=== PATIENT | male | born 2000 | race Caucasian/White ===

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

== ENCOUNTER 2019-09-02 13:42 | Emergency (ER) | payer OTHER ==
[2019-09-02] MEDS ORDERED: IBUPROFEN 600 MG TABLET (FP) PO ONE ×2 (13:47→13:54)
--- NOTE | 2019-09-02 13:47 | PDOC ---
Rapid Medical Evaluation Time Seen by Provider: 09/02/19 13:45 Medical Evaluation: Allergies Allergy/AdvReac Type Severity Reaction Status Date / Time No Known Allergies Allergy Verified 09/05/17 20:08 09/02/19 13:45 Pt is a 19 y/o M who presents for R hand pain after getting it caught in a car door this morning. Pt is R handed. Exam: Distal pulses 2+ and present, ttp of the 1st, 2nd, and 3rd R digits. Decreased ROM d/t pain Orders: X-ray, motrin Pt to proceed to the ER for further evaluation Discharge Disposition - Diagnosis Hand pain Qualifiers: Laterality: right Qualified Code(s): M79.641 - Pain in right hand - Referrals - Patient Instructions - Post Discharge Activity
[2019-09-02 13:48] VITALS: BP 145/76; PULSE 107; TEMP 97.8; BMI 21.9
--- NOTE | 2019-09-02 14:13 | PDOC ---
History of Present Illness - General Chief Complaint: Pain Stated Complaint: HURT HAND Time Seen by Provider: 09/02/19 13:45 History Source: Patient Exam Limitations: No Limitations - History of Present Illness Initial Comments: 09/02/19 14:13 19-year-old male presents to ED with complaints of pain to his right hand after it was closed in a car door prior to arrival. Patient states pain to the base of his right hand denies any previous injury to the affected area. Patient did not taking thing for the pain and decided come to the ER for further evaluation. Is this a multiple visit Asthma Patient?: No Timing/Duration: 1 hour Severity: mild Associated Symptoms: reports: denies symptoms Past History - Travel History Traveled outside of the country in the last 30 days: No Close contact w/someone who was outside of country & ill: No - Medical History Allergies/Adverse Reactions: Allergies Allergy/AdvReac Type Severity Reaction Status Date / Time No Known Allergies Allergy Verified 09/05/17 20:08 Home Medications: Ambulatory Orders Amoxicillin - [Amoxicillin 500mg Capsule -] 500 mg PO TID #21 capsule 09/08/17 COPD: No - Psycho-Social/Smoking History Patient Lives Alone: No Lives with/in: parents Smoking History: Never smoked Number of Cigarettes Smoked Daily: 10 Information on smoking cessation initiated: No - Substance Abuse Hx (Audit-C & DAST Scrn) How often the patient has a drink containing alcohol: Never Score: In Men: 4 or > Positive; In Women: 3 or > Positive: 0 Screen Result (Pos requires Nsg. Audit-10AR): Negative In the last yr the pt used illegal drug/Rx for NonMed reason: No Score: Yes response is considered Positive: 0 Screen Result (Positive result requires Nsg. DAST-10): Negative Review of Systems - Review of Systems Able to Perform ROS?: No Is the patient limited Citizen [place] proficient: No Constitutional: No: Symptoms Reported Musculoskeletal: Yes: Joint Pain Integumentary: Yes: Bruising, Erythema Endocrine: No: Symptoms Reported Hematologic/Lymphatic: No: Symptoms Reported *Physical Exam - Vital Signs Last Vital Signs Temp Pulse Resp BP Pulse Ox 97.8 F 107 H 17 145/76 99 09/02/19 13:46 09/02/19 13:46 09/02/19 13:46 09/02/19 13:46 09/02/19 13:46 - Physical Exam General Appearance: Yes: Nourished, Appropriately Dressed. No: Apparent Distress Integumentary: positive: Swelling (Base of right hand), Bruising Neurologic: positive: Motor Strength 5/5 (Unable to make a fist due to discomfort , ambulatory) ED Treatment Course - Medications Given in the ED: ED Medications Discontinued Medications Generic Name Dose Route Start Last Admin Trade Name Carlie PRN Reason Stop Dose Admin Ibuprofen 600 mg 09/02/19 13:47 09/02/19 13:57 Motrin - PO 09/02/19 13:48 600 mg ONCE ONE Administration Medical Decision Making - Medical Decision Making 09/02/19 14:16 Chief complaint: Right hand injury after it was caught between the door when it was closed. No previous injury to affected area. Exam. Patient tender to the base of right hand and unable to make a fist. Plan: Patient given Motrin and had x-ray prior to my examination X-ray reviewed which showed no signs of subluxation, dislocation or fracture. Christian wrap applied patient requesting work note for today since he works with his hands and he is right-hand dominant. Discharge - Discharge Information Problems reviewed: Yes Clinical Impression/Diagnosis: Hand pain Qualifiers: Laterality: right Qualified Code(s): M79.641 - Pain in right hand Condition: Good Disposition: HOME - Follow up/Referral - Patient Discharge Instructions Patient Printed Discharge Instructions: DI for Hand Injury Additional Instructions: At this time your x-ray was negative for acute fracture or any other acute injuries but I do recommend applying ice to the affected areas much as you can tolerate for the next 3 days taking Motrin or Tylenol for 6 to 8 hours to alleviate discomfort and inflammation and use an Christian wrap during the day but r emove at night. - Post Discharge Activity Work/Back to School Note: Back to Work
== END 2019-09-02 14:23 | disposition home or self-care (01) ==
LOC: JERFT 13:42
DX: M79.641 Pain in right hand (principal)
CPT/HCPCS: 73110-TC-RT-FY; 73130-TC-RT-FY; 99283-25

== ENCOUNTER 2019-09-15 18:30 | Emergency (ER) | payer OTHER ==
[2019-09-15 18:58] VITALS: BP 115/63; PULSE 82; TEMP 97.9; BMI 22.8
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
[2019-09-15] MEDS ORDERED: IBUPROFEN 600 MG TABLET (FP) PO ONE ×2 (19:27→19:33)
== END 2019-09-15 20:26 | disposition home or self-care (01) ==
LOC: JER 18:30 → JERFT 18:30
DX: M79.641 Pain in right hand (principal)
CPT/HCPCS: 73130-TC-RT-FY; 99283-25

== ENCOUNTER 2019-10-16 15:21 | Emergency (ER) | payer OTHER ==
[2019-10-16 15:31] VITALS: BP 149/90; PULSE 94; TEMP 100.4; BMI 23.5
[2019-10-16] MEDS ORDERED: IBUPROFEN 600 MG TABLET (FP) PO ONE ×2 (15:36→15:40)
--- NOTE | 2019-10-16 15:36 | PDOC ---
Rapid Medical Evaluation Chief Complaint: Cold Symptoms Time Seen by Provider: 10/16/19 15:31 Medical Evaluation: Allergies Allergy/AdvReac Type Severity Reaction Status Date / Time No Known Allergies Allergy Verified 10/16/19 15:31 Vital Signs Temp Pulse Resp BP Pulse Ox 100.4 F H 94 H 20 149/90 97 10/16/19 15:29 10/16/19 15:29 10/16/19 15:29 10/16/19 15:29 10/16/19 15:29 10/16/19 15:32 HPI: COVID-19 CDC guideline data points: The patient is a 19-year-old male with suspected COVID-19 with associated symptoms of dry cough, sore throat for 2 days. Patient called into work and was told he cannot return to work without having cover testing performed. He denies comorbidities. ROS: NEGATIVE: difficulty breathing, shortness of breath, chest pain, lightheadedness, dizziness, nausea, vomiting and diarrhea. Other 12 point ROS reviewed and negative. Exam: General: NAD, Well-Appearing, Awake, Alert Oriented x3. Vital signs stable. ENT: No rhinorrhea or nasal congestion. Oropharynx mildly erythematous without tonsillar swelling present. No exudates are noted. Neck: FROM, no midline tenderness. Lungs: Clear to auscultation bilaterally without wheezes, rhonchi or rales. Normal excursion. Patient is able to speak in full sentences. Heart: HR: 94. Regular rhythm, S1-S2 present, no murmurs rubs or gallops. Abdomen: Non-distended. MSK/Extremities: No decrease ROM, No obvious deformities. No obvious cyanosis noted. Neuro: Normal Gait, Cranial Nerves II through XII Grossly Intact. Skin: No obvious rashes, bruising. Color Normal Appearing. Assessment/Plan: Cough/sore throat Patient has a history of this/these comorbidities: none, denies recent travel and known COVID exposure. Patient does meet testing criteria at this time. ASSESSMENT: Denies recent travel and known Covid exposure. Treatment: COVID testing Motrin 600 mg orally now Discharge home with prescription for Z-Fredi. Discharge Disposition - Diagnosis Counseled about COVID-19 virus infection URI (upper respiratory infection) Qualifiers: URI type: unspecified viral URI Qualified Code(s): J06.9 - Acute upper respiratory infection, unspecified - Discharge Dispostion Decision to Admit order: No - Referrals - Patient Instructions Printed Discharge Instructions: [facility]-Coronavirus Instructions, [facility] COVID-19 Isolation Protocol Additional Instructions: Rest, drink lots of fluids: Teas, water, soups, Pedialyte Saltwater gargles Steamy showers/seem to face break up mucus Avoid contact with others until fevers and cough resolved Lots of handwashing and good hygiene Continue [id number] medications for symptomatic relief Tylenol or Motrin for fever and pain Take azithromycin as directed. Followup with private physician in one to 2 days as needed Return to emergency department for worsened symptoms, fevers, dehydration - Post Discharge Activity Work/School Note: Back to Work
[2019-10-16] MEDS ORDERED: ACETAMINOPHEN 325 MG TABLET (FP) ONE (15:39)
== END 2019-10-16 15:58 | disposition home or self-care (01) ==
LOC: JER 15:21
DX: J06.9 Acute upper respiratory infection, unspecified (principal)
CPT/HCPCS: 99283-25; U0003

== ENCOUNTER 2022-02-25 10:27 | Emergency (ER) | payer OTHER ==
[2022-02-25 10:39] VITALS: BP 125/83; PULSE 97; RESP 20; TEMP 98.7; BMI 30.7
== END 2022-02-25 12:41 | disposition home or self-care (01) ==
LOC: JER 10:27
DX: U07.1 COVID-19 (principal)
CPT/HCPCS: 99283-25; C9803-CS; U0003; U0005